=== PATIENT | male | born 1990 | race African-American/Black ===

== ENCOUNTER 2017-08-14 01:07 | Emergency (ER) | payer BC ==
[~2017-08-14] VITALS: Ht 177.8 cm; Wt 91.9 kg
[2017-08-14] MEDS ORDERED: PERCOCET 5/31 TABLET PO (02:15)
[2017-08-14] MEDS ORDERED: CLINDAMYCIN HC150 MG PO (02:15)
[2017-08-14 03:01] VITALS: BP 122/78
== END 2017-08-14 03:02 | disposition home or self-care (01) ==
LOC: EME 01:07 → EXP 01:07
PROC: 0C92XZZ Drainage of Hard Palate, External Approach (ICD-10-PCS; principal; 2017-08-14)
DX: K04.7 Periapical abscess without sinus (principal); Z88.2 Allergy status to sulfonamides; Z88.0 Allergy status to penicillin
CPT/HCPCS: 99281; 99284